=== PATIENT | male | born 1955 | race Caucasian/White ===

== ENCOUNTER 2017-12-28 12:33 | Emergency (ER) | payer MEDICAID ==
[2017-12-28 12:56] VITALS: BP 111/93
[2017-12-28] MEDS ORDERED: Lactated Ringers 500 ML IV ONE (13:12)
[2017-12-28] MEDS ORDERED: Sodium Chloride 0.9% 10 ML Syringe FLUSH PRN ×2 (13:12→17:15)
[2017-12-28] MEDS ORDERED: Morphine 4 MG/ML Syringe IVPUSH ONE (13:12)
[2017-12-28] MEDS ORDERED: Ondansetron 4 MG/2 ML SDV IVPUSH ONE (13:15)
--- NOTE | 2017-12-28 13:21 | EDM.PDOC ---
ED HPI GENERAL MEDICAL PROBLEM - General Chief Complaint: Abdominal Pain Stated Complaint: FLANK/ABDOMINAL PAIN Time Seen by Provider: 12/28/17 12:55 Source of Information: Reports: Patient History Limitations: Reports: No Limitations - History of Present Illness INITIAL COMMENTS - FREE TEXT/NARRATIVE: 62-year-old male presents for evaluation and treatment of right lower quadrant abdominal pain. Patient reports that the abdominal pain started yesterday. States that it is colicky in nature. At its worse it brings him to tears. States is located in the right lower quadrant. No radiation to the groin, flank or back. He has not had any fevers, nausea or vomiting. No diarrhea or constipation. No dysuria or hematuria. Patient states he took a hydrocodone he had at home. He takes hydrocodone daily for chronic pain. States this is not relieving the pain. Patient has a history of kidney stones. Never required any surgery to present stones. No previous abdominal surgeries. Patient is a current every day smoker. Right Lower Abdominal Pain Score (Numeric/FACES): 10 - Related Data Allergies Allergy/AdvReac Type Severity Reaction Status Date / Time alendronate sodium AdvReac Vomiting Verified 12/31/17 13:40 [From Fosamax] Home Meds: Home Meds Albuterol [IJD: Albuterol HFA] 2 puff INH Q6H PRN 08/01/16 [History] Budesonide/Formoterol [Symbicort 160-4.5 MCG] 2 puff INH BID 08/01/16 [History] Dicyclomine [Bentyl] 1 tab PO Q6H PRN #20 tablet 08/01/16 [Rx] Hydrocodone/Acetaminophen [Hydrocodon-Acetaminophen 5-325] 1 tab PO TID PRN 03/12 [History] Levofloxacin [Levaquin] 1 tab PO Q24H #10 tablet 08/01/16 [Rx] metroNIDAZOLE [Flagyl] 1 tab PO Q8H #30 tablet 08/01/16 [Rx] Past Medical History - Past Health History Medical/Surgical History: Denies Medical/Surgical History Respiratory History: Reports: COPD Musculoskeletal History: Reports: Arthritis (bilateral shoulders), Osteoporosis - Past Surgical History Musculoskeletal Surgical History: Reports: ORIF (left ankle, right patella) Social & Family History - Tobacco Use Smoking Status *Q: Former Smoker Years of Tobacco use: 40 - Caffeine Use Caffeine Use: Reports: None - Alcohol Use Days Per Week of Alcohol Use: 0 Number of Drinks Per Day: 1 Total Drinks Per Week: 0 - Recreational Drug Use Recreational Drug Use: No Drug Use in Last 12 Months: Yes Recreational Drug Type: Reports: Marijuana/Hashish ED ROS GENERAL - Review of Systems Review Of Systems: See Below Constitutional: Denies: Fever, Chills GI/Abdominal: Reports: Abdominal Pain (RLQ). Denies: Hematochezia, Melena, Nausea, Vomiting : Reports: No Symptoms. Denies: Dysuria, Flank Pain, Hematuria ED EXAM, RENAL/ - Physical Exam Exam: See Below Exam Limited By: No Limitations General Appearance: Alert, WD/WN, No Apparent Distress, Thin Respiratory/Chest: No Respiratory Distress, Lungs Clear, Normal Breath Sounds Cardiovascular: Normal Peripheral Pulses, Regular Rate, Rhythm, No Murmur GI/Abdominal: Normal Bowel Sounds, Soft, Non-Tender, Tender (RLQ). No: Distended, Guarding, Rebound Back Exam: No: CVA Tenderness (L), CVA Tenderness (R) Neurological: Alert, Oriented, Normal Cognition Psychiatric: Normal Affect, Normal Mood Skin Exam: Warm, Dry, Normal Color Course - Vital Signs Last Recorded V/S: Last Vital Signs Temp 36.9 C 12/28/17 12:51 Pulse 74 12/28/17 12:51 Resp 18 12/28/17 12:51 BP 111/93 H 12/28/17 12:51 Pulse Ox 100 12/28/17 12:51 - Orders/Labs/Meds Labs: Laboratory Tests 12/28/17 12/28/17 12/28/17 Range/Units 13:00 13:00 14:12 WBC 11.55 H (4.23-9.07) K/mm3 RBC 4.74 (4.63-6.08) M/mm3 Hgb 13.7 (13.7-17.5) gm/L Hct 41.4 (40.1-51.0) % MCV 87.3 (79.0-92.2) fl MCH 28.9 (25.7-32.2) pg MCHC 33.1 (32.2-35.5) g/dl RDW Std Deviation 49.9 H (35.1-43.9) fL Plt Count 283 (163-337) K/mm3 MPV 10.0 (9.4-12.3) fl Neutrophils % (Manual) 69 H (40-60) % Band Neutrophils % 0 (0-10) % Lymphocytes % (Manual) 27 (20-40) % Atypical Lymphs % 0 % Monocytes % (Manual) 2 (2-10) % Eosinophils % (Manual) 2 (0.8-7.0) % Basophils % (Manual) 0 L (0.2-1.2) Platelet Estimate Adequate RBC Morph Comment Normal Sodium 136 (136-145) mEq/L Potassium 3.6 (3.5-5.1) mEq/L Chloride 102 (98-107) mEq/L Carbon Dioxide 21 (21-32) mEq/L Anion Gap 16.6 H (5-15) BUN 7 (7-18) mg/dL Creatinine 0.6 L (0.7-1.3) mg/dL Est Cr Clr Drug Dosing 115.08 mL/min Estimated GFR (MDRD) > 60 (>60) mL/min BUN/Creatinine Ratio 11.7 L (14-18) Glucose 104 (74-106) mg/dL Calcium 8.7 (8.5-10.1) mg/dL Total Bilirubin 0.5 (0.2-1.0) mg/dL AST 36 (15-37) U/L ALT 38 (16-63) U/L Alkaline Phosphatase 46 (46-116) U/L C-Reactive Protein < 0.2 (<1.0) mg/dL Total Protein 7.1 (6.4-8.2) g/dl Albumin 4.0 (3.4-5.0) g/dl Globulin 3.1 gm/dL Albumin/Globulin Ratio 1.3 (1-2) Lipase 162 (73-393) U/L Urine Color Yellow (Yellow) Urine Appearance Clear (Clear) Urine pH 7.0 (5.0-8.0) Ur Specific [place] 1.015 (1.005-1.030) Urine Protein Negative (Negative) Urine Glucose (UA) Negative (Negative) Urine Ketones Trace H (Negative) Urine Occult Blood 1+ H (Negative) Urine Nitrite Negative (Negative) Urine Bilirubin Negative (Negative) Urine Urobilinogen 0.2 (0.2-1.0) Ur Leukocyte Esterase Negative (Negative) Urine RBC 5-10 H (0-5) /hpf Urine WBC 0-5 (0-5) /hpf Ur Epithelial Cells 0-5 (0-5) /hpf Urine Bacteria Not seen (FEW) /hpf Urine Mucus Not seen (FEW) /hpf Meds: Medications Discontinued Medications Generic Name Dose Route Start Last Admin Trade Name Freq PRN Reason Stop Dose Admin Lactated Ringer's 500 mls @ 500 mls/hr 12/28/17 13:12 12/28/17 13:33 Ringers, Lactated IV 12/28/17 14:11 500 mls/hr .BOLUS ONE Administration Sodium Chloride 100 mls @ 75 mls/hr 12/28/17 17:15 Normal Saline IV ASDIRECTED MIRTA Iopamidol 100 ml 12/28/17 17:15 Isovue-370 (76%) IVPUSH 12/28/17 17:16 ONETIME ONE Morphine Sulfate 4 mg 12/28/17 13:12 12/28/17 13:30 Morphine IVPUSH 12/28/17 13:13 4 mg ONETIME ONE Administration Ondansetron HCl 4 mg 12/28/17 13:15 12/28/17 13:33 Zofran IVPUSH 12/28/17 13:16 4 mg ONETIME ONE Administration Sodium Chloride 10 ml 12/28/17 13:12 12/28/17 13:34 Saline Flush FLUSH 10 ml ASDIRECTED PRN Administration Keep Vein Open Sodium Chloride 10 ml 12/28/17 17:15 Saline Flush FLUSH ONETIME PRN IV FLUSH - Radiology Interpretation Free Text/Narrative:: CT abdomen and pelvis Technique: Multiple axial sections were obtained from above the dome of the diaphragm inferiorly through the pubic symphysis. Intravenous and oral contrast not utilized. Study has been performed as a ureteral stone protocol. Comparison: Prior CT abdomen and pelvis exam of 08/01/16. Findings: Visualized lung bases shows nothing acute. Noncontrast appearance of the liver and spleen appears within normal limits. Adrenal glands show no nodule. Pancreas shows no discrete abnormality. Gallbladder contains no calcified gallstones. Aorta shows atherosclerotic change which continues into the iliac vessels. No retroperitoneal adenopathy is seen. No mesenteric abnormalities are seen. No pelvic mass or adenopathy is seen. No inflammatory change or free fluid is seen. Diverticuli are seen within the sigmoid colon without evidence of diverticulitis. Appendix is not visualized. Kidneys show no hydronephrosis. Several small nonobstructing calculi are seen within the right kidney. Low-density lesion is noted within the mid medial right kidney most likely representing a cyst measuring about 1.3 cm. No ureteral dilatation or ureteral stone is seen. Bone window settings were reviewed which appears within normal limits for the patient's age. Impression: 1. No ureteral stone or ureteral dilatation is seen. Several small nonobstructing calculi seen within the right kidney. 2. Other incidental findings. Nothing acute is appreciated on noncontrast CT study of the abdomen and pelvis. - Re-Assessments/Exams Free Text/Narrative Re-Assessment/Exam: 12/28/17 16:45 I reviewed the labs and imaging with the patient. I ordered CT of the abdomen and pelvis without contrast initially as his history and physical are more consistent with a kidney stone. The patient's fianc is present at the bedside and states that he often has an elevated white blood cell count has seen hematology for this. His white blood cell count today is lower than it has been in the past. I discussed the case with Dr. Newman, surgeon director of home economics. She has come to the ER and evaluated the patient. She does not feel that this is an acute appendicitis. She did perform a rectal exam and noted a hard prostate. Please see her note for complete details of this encounter. We discussed the patient after her evaluation. I will go ahead and proceed with a CT with contrast to evaluate for mesenteric ischemia or vascular abnormality causing his pain as he has several risk factors. He has significant calcification of his aorta and he is a current every day smoker. He does look chronically ill and looks much older than his stated age. I discussed the plan with the patient. He agrees to proceed with the CT. 12/28/17 17:57 The settlement technician came and found me. The patient is now refusing the CT and wants to go home. I entered the room with MEGHAN Garcia. The patient is very upset and wants to go home and eat. I informed him that I cannot allow him to ED until we know for sure the etiology of his pain. He is refusing the CTA. He would like to sign AGAINST MEDICAL ADVICE paperwork and leave. I did advise him of the risk of this as if he does have something like mesenteric ischemia this could be deadly for him. Departure - Departure Time of Disposition: 17:45 Disposition: Against Medical Advice 07 Condition: Undetermined Clinical Impression: Abdominal pain - Discharge Information Referrals: Ho Crow Jr, MD [Primary Care Provider] - Forms: ED Department Discharge Additional Instructions: Patient left prior to CTA. Signout AGAINST MEDICAL ADVICE. Condition undetermined.
--- NOTE | 2017-12-28 14:15 | CT ---
CT abdomen and pelvis Technique: Multiple axial sections were obtained from above the dome of the diaphragm inferiorly through the pubic symphysis. Intravenous and oral contrast not utilized. Study has been performed as a ureteral stone protocol. Comparison: Prior CT abdomen and pelvis exam of 08/01/16. Findings: Visualized lung bases shows nothing acute. Noncontrast appearance of the liver and spleen appears within normal limits. Adrenal glands show no nodule. Pancreas shows no discrete abnormality. Gallbladder contains no calcified gallstones. Aorta shows atherosclerotic change which continues into the iliac vessels. No retroperitoneal adenopathy is seen. No mesenteric abnormalities are seen. No pelvic mass or adenopathy is seen. No inflammatory change or free fluid is seen. Diverticuli are seen within the sigmoid colon without evidence of diverticulitis. Appendix is not visualized. Kidneys show no hydronephrosis. Several small nonobstructing calculi are seen within the right kidney. Low-density lesion is noted within the mid medial right kidney most likely representing a cyst measuring about 1.3 cm. No ureteral dilatation or ureteral stone is seen. Bone window settings were reviewed which appears within normal limits for the patient's age. Impression: 1. No ureteral stone or ureteral dilatation is seen. Several small nonobstructing calculi seen within the right kidney. 2. Other incidental findings. Nothing acute is appreciated on noncontrast CT study of the abdomen and pelvis. Diagnostic code #2
[2017-12-28] MEDS ORDERED: Sodium Chloride 0.9% 100 ML IV SCH (17:15)
[2017-12-28] MEDS ORDERED: Iopamidol 755 Mg/ML 100 ML Bottle IVPUSH ONE (17:15)
--- NOTE | 2017-12-30 07:40 | CONS ---
CONSULTING PHYSICIAN: Hina Newman MD DATE OF CONSULTATION: 12/28/2017 SURGICAL CONSULTATION NOTE CHIEF COMPLAINT: Lower abdominal pain. HISTORY OF PRESENT ILLNESS: Mr. Liam Pisano is a 62-year-old male, who looks much older than his stated age, who told me that he had been having some vague abdominal pain he has had here for about three days. He stated that he did not really have any nausea or vomiting, and did not have any change in his usual bowel habits. He had no diarrhea, but he did have a mucousy-type stool two days ago. Intermittently, he states that he has been hungry. He has had no fevers or chills. He has denied any hematuria or dysuria. Over the course of the last year, he states that he has had significant weight loss of about 30 to 35 pounds. He denies having any difficulty swallowing or any appetite change, and is unclear as to why he is losing weight. Now, the patient states that the discomfort has gotten better. It had before been a little bit colicky and felt to be more so on the right side. He has never had any abdominal surgeries, and he denies that he has noted any masses in his groin. ALLERGIES: Alendronate sodium. CURRENT MEDICATIONS: He is on numerous inhalers and OxyContin on a regular basis for chronic back pain. SOCIAL HISTORY: He is here with his fiancee and his two young children. One looks like about three months old. He has a total of eleven children and four wives. PAST SURGICAL HISTORY: He has had a shoulder history and a fractured ankle. FUNCTIONAL STATUS: He is on disability, status post being a pablo. HABITS: He smokes half a pack a day and drinks weekly. REVIEW OF SYSTEMS: CONSTITUTIONAL: He has had the weight loss as I described above. HEAD: No history of seizures. EYES: No history of blurred or double vision other than what he had many years ago. ENDOCRINE: He denies any thyroid, diabetes, or hepatitis. NECK: He denies any neck mass or tinnitus. LUNGS: He has this chronic shortness of breath, for which he takes the inhalers. He is not on any home oxygen. CARDIAC: He has no change in his chronic shortness of breath. He denies any cardiac arrhythmia or chest tenderness. ABDOMEN: See history of present illness. EXTREMITIES: No history of ankle swelling or edema. MUSCULOSKELETAL: He has chronic back pain and joint pain. PHYSICAL EXAMINATION: GENERAL: As stated earlier, he looks much older than his stated age. He is very thin, and almost cachectic looking. NECK: Without mass or tenderness. LUNGS: He is barrel-chested with clear breath sounds. HEART: Rhythm is regular, but distant heart sounds. ABDOMEN: There are normal active bowel sounds throughout, but it is nondistended. To palpation, he is tender in the right lower quadrant and a little bit in the groin area, but he does not have any rebound. He is also mildly tender on the left. GENITOURINARY: He has bilateral reducible inguinal hernia, especially on the right. The spermatic cord on that side was a little tender when I was palpating, otherwise but not down into his testicle. RECTAL: He had no stool in the rectal vault, and the prostate was enlarged, but very hard. EXTREMITIES: Ankles were free of edema. LABORATORY DATA AND DIAGNOSTIC STUDIES: I have reviewed the labs and the CT scan. Of note, on the CT scan, there were significant aortoiliac calcifictaions throughout. IMPRESSION AND PLAN: 1. Abdominal pain of unclear etiology. He is, at this point, improving in time. He does not have a surgical abdomen. However, there are multiple causes that could possibly give this colicky pain that he had including aortoiliac disease because it is significant. He and his fiancee have never noted this. I think that hydration at this point of time would be indicated, and whether we proceed to do a CT scan with contrast and get further analysis probably would be felt in the future if any sort of colitis on that right side. Otherwise, I would suggest that he be followed up with his primary care to further check because he is scheduled to have an upper endoscopy, and I would also say there would need to be some evaluation of the hard prostate that I felt on my exam. I clearly stated to the patient and his fiancee that things could change, but at this point in time, that would be my recommendation. 1. Chronic obstructive pulmonary disease. 2. Aortoiliac vascular disease. 3. Weight loss of unclear etiology. 4. Firm prostate. MMODAL /[id number]
== END 2017-12-28 17:27 | disposition left against medical advice (07) ==
LOC: JD.ED 12:33
DX: R10.31 Right lower quadrant pain (principal); J44.9 Chronic obstructive pulmonary disease, unspecified; Z79.891 Long term (current) use of opiate analgesic; Z88.8 Allergy status to other drugs, medicaments and biological substances; Z87.891 Personal history of nicotine dependence
CPT/HCPCS: 36415; 51798; 74176; 80053; 81001; 83690; 85025; 86140; 96361; 96374; 96375; 99284; J2270; J2405; J7050; J7120